=== PATIENT | female | born 1995 | race Caucasian/White ===

== ENCOUNTER 2019-03-12 08:26 | Observation (INO) | payer OTHER ==
[~2019-03-12] VITALS: Ht 167.6 cm; Wt 97.7 kg
[2019-03-12 09:14] VITALS: BP 125/73
[2019-03-12 10:20] LABS: MICROSCOPIC INDICATED
[2019-03-12 10:25] LABS: AMPHETAMINE SCREEN, URINE Negative (Negative); BARBITURATE SCREEN, URINE Negative (Negative); BENZODIAZEPINE SCREEN, URINE Negative (Negative); CANNABINOID SCREEN, URINE Negative (Negative); COCAINE SCREEN, URINE Negative (Negative); METHADONE SCREEN, URINE Negative (Negative); OPIATE SCREEN, URINE Negative (Negative)
[2019-03-12] MEDS ORDERED: PREN1TAB10 PO (13:52)
== END 2019-03-12 14:10 | disposition home or self-care (01) ==
LOC: LDOP 08:26 → LDIP 10:00
PROVIDERS: ADMIT Obstetrics & Gynecology Maternal & Fetal Medicine; ATTEND Obstetrics & Gynecology Maternal & Fetal Medicine
DX: O26.893 Other specified pregnancy related conditions, third trimester (principal); R10.9 Unspecified abdominal pain; O99.343 Other mental disorders complicating pregnancy, third trimester; F32.9 Major depressive disorder, single episode, unspecified; Z3A.40 40 weeks gestation of pregnancy
CPT/HCPCS: 59025; 76815; 80307; 81001; 84112; 99201; G0378; G0463

== ENCOUNTER 2019-03-12 16:37 | Inpatient (IN) | payer OTHER ==
[~2019-03-12] VITALS: Ht 167.6 cm; Wt 97.7 kg
[~2019-03-12 16:37] MED LIST: PREN1TAB10 PO
[2019-03-12] MEDS: D5%-LACTATED RINGERS 1,000 ML IV SCH (16:53)
[2019-03-12] MEDS ORDERED: OXYTOCIN 30U/ 0.9% NaCL 500ML 500 ML IV ONE (16:53)
[2019-03-12] MEDS: LACTATED RINGERS 1,000 ML IV SCH ×3 (16:53→23:34)
[2019-03-12] MEDS ORDERED: OXYTOCIN 30U/ 0.9% NaCL 500ML 500 ML IV PRN (16:53)
[2019-03-12] MEDS ORDERED: FENTANYL/BUPIV./NS/PF 250 ML EPIDCONT SCH ×2 (16:53→17:58)
[2019-03-12] MEDS ORDERED: ONDANSETRON 2MG/ML, 2ML IVPush PRN ×2 (17:00→18:00)
[2019-03-12] MEDS ORDERED: LACTATED RINGERS 1,000 ML IVBOLUS PRN ×2 (17:00→18:00)
[2019-03-12] MEDS ORDERED: EPHEDRINE 50 MG/ML, 1ML IVPush PRN ×2 (17:00→18:00)
[2019-03-12] MEDS ORDERED: FENTANYL PF 100 MCG/2ML IV PRN (17:00)
[2019-03-12] MEDS ORDERED: FENTANYL PF 100 MCG/2ML IVPush PRN (17:00)
[2019-03-12] MEDS ORDERED: CALCIUM CARBONATE 500 MG TAB.CHEW PO PRN (17:00)
[2019-03-12] MEDS ORDERED: NEWBORN KIT ONE (17:12)
[2019-03-12] MEDS ORDERED: FENTANYL PF 100 MCG/2ML ONE (17:14)
[2019-03-12 17:28] LABS: BASOPHILS % (AUTO) 0 % (0-1); EOSINOPHILS # (AUTO) 0.09 x10^3/uL (0-0.4); EOSINOPHILS % (AUTO) 1 % (1-7); LYMPHOCYTES # (AUTO) 1.15 x10^3/uL (1-3.4); LYMPHOCYTES % (AUTO) 7 % (22-44); MD NO; MEAN CORPUSCULAR HEMOGLOBIN 24.7 pg (27.0-34.8); MEAN PLATELET VOLUME 8.9 fL (7.4-10.4); MONOCYTES # (AUTO) 0.99 x10^3/uL (0.2-0.8); MONOCYTES % (AUTO) 6 % (2-9); NEUTROPHILS # (AUTO) 14.47 x10^3/uL (1.8-6.8); NEUTROPHILS % (AUTO) 87 % (42-75); PLATELET COUNT 300 x10^3/uL (130-400); RED CELL DISTRIBUTION WIDTH 17.8 % (9.6-15.2)
[2019-03-12] MEDS: PLEASE ENTER HEIGHT AND WEIGHT MC SCH ×2 (17:30)
[2019-03-12] MEDS ORDERED: LIDOCAINE/PF 1.5%-EPI 1:200K, 30ML ONE (17:53)
[2019-03-12] MEDS ORDERED: BUPIVACAINE 0.25% ONE (17:53)
[2019-03-12] MEDS ORDERED: LACTATED RINGERS 1,000 ML IV SCH (17:58)
[2019-03-12] MEDS ORDERED: DIPHENHYDRAMINE 50 MG/ML, 1ML IVPush PRN (18:00)
[2019-03-12] MEDS ORDERED: NALOXONE 0.4 MG/ML, 1ML IVPush PRN (18:00)
[2019-03-12] MEDS ORDERED: FENTANYL PF 500 MCG, BUPIVACAINE/PF 0.5%, 30ML 62.5 ML in SODIUM CHLORIDE 0.9% 177.5 ML EPIDCONT SCH (18:00)
[2019-03-12] MEDS ORDERED: LIDOCAINE/MPF 2%-EPI 1:200K, 20 ML ONE (19:23)
[2019-03-12] MEDS ORDERED: OXYTOCIN 30U/ 0.9% NaCL 500ML 500 ML ONE ×2 (19:53→23:29)
[2019-03-12] MEDS ORDERED: LIDOCAINE 1%, 20ML ONE ×2 (19:53→22:32)
[2019-03-12] MEDS ORDERED: MISOPROSTOL 200 MCG TABLET ONE (19:53)
[2019-03-12] MEDS ORDERED: MISOPROSTOL 200 MCG TABLET PR PRN (23:00)
[2019-03-12] MEDS ORDERED: OXYcodone IR 5MG TABLET PO PRN (23:00)
[2019-03-12] MEDS ORDERED: ONDANSETRON 2MG/ML, 2ML IV PRN (23:00)
[2019-03-12] MEDS: OXYTOCIN 30U/ 0.9% NaCL 500ML 500 ML IV SCH (23:34)
[2019-03-12] MEDS ORDERED: IBUPROFEN 600 MG TABLET ONE (23:47)
[2019-03-12] MEDS: IBUPROFEN 600 MG TABLET PO PRN (23:49)
[2019-03-13] MEDS: LACTATED RINGERS 1,000 ML IV SCH (00:53)
[2019-03-13] MEDS: D5%-LACTATED RINGERS 1,000 ML IV SCH (00:53)
[2019-03-13 01:20] VITALS: BP 122/73
[2019-03-13] MEDS: PLEASE ENTER HEIGHT AND WEIGHT MC SCH ×2 (01:30)
[2019-03-13 05:20] VITALS: BP 109/67
[2019-03-13 06:36] LABS: BASOPHILS # (AUTO) 0.15 x10^3/uL (0-0.1); BASOPHILS % (AUTO) 1 % (0-1); EOSINOPHILS # (AUTO) 0.02 x10^3/uL (0-0.4); EOSINOPHILS % (AUTO) 0 % (1-7); LYMPHOCYTES # (AUTO) 1.39 x10^3/uL (1-3.4); LYMPHOCYTES % (AUTO) 9 % (22-44); MD NO; MEAN CORPUSCULAR HEMOGLOBIN 24.4 pg (27.0-34.8); MEAN CORPUSCULAR HGB CONC 31.6 g/dL (32.4-35.8); MEAN CORPUSCULAR VOLUME 77.3 fL (80-100); MEAN PLATELET VOLUME 8.3 fL (7.4-10.4); MONOCYTES # (AUTO) 0.97 x10^3/uL (0.2-0.8); MONOCYTES % (AUTO) 6 % (2-9); NEUTROPHILS # (AUTO) 12.74 x10^3/uL (1.8-6.8); NEUTROPHILS % (AUTO) 83 % (42-75); PLATELET COUNT 247 x10^3/uL (130-400); RED BLOOD COUNT 3.96 x10^6/uL (3.82-5.3); RED CELL DISTRIBUTION WIDTH 17.4 % (9.6-15.2)
[2019-03-13] MEDS: DOCUSATE 100 MG CAPSULE PO PRN (07:50)
[2019-03-13] MEDS: PRENATAL VIT/IRON/FA 1 EACH TABLET PO SCH (07:50)
[2019-03-13 08:04] VITALS: BP 97/62
[2019-03-13] MEDS: OXYTOCIN 30U/ 0.9% NaCL 500ML 500 ML IV SCH ×2 (08:59→18:59)
[2019-03-13 12:49] VITALS: BP 101/70
[2019-03-13] MEDS: OXYcodone/APAP 5/325MG TABLET PO PRN (13:11)
[2019-03-13] MEDS: IBUPROFEN 600 MG TABLET PO PRN (13:11)
[2019-03-13 20:00] VITALS: BP 97/60
[2019-03-14] MEDS: IBUPROFEN 600 MG TABLET PO PRN ×2 (00:10→09:11)
[2019-03-14] MEDS: OXYcodone/APAP 5/325MG TABLET PO PRN (00:11)
[2019-03-14] MEDS: PRENATAL VIT/IRON/FA 1 EACH TABLET PO SCH (07:30)
[2019-03-14] MEDS: DOCUSATE 100 MG CAPSULE PO PRN (07:30)
[2019-03-14 08:16] VITALS: BP 106/71
[2019-03-14] MEDS ORDERED: IBUP-1222 PO (09:46)
== END 2019-03-14 11:56 | disposition home or self-care (01) | DRG 807 ==
LOC: LDOP 16:37 → LDIP 16:53 → UNDOADMIN 16:59 → 2NW 03-13 01:12
PROVIDERS: ADMIT Obstetrics & Gynecology Maternal & Fetal Medicine; ATTEND Obstetrics & Gynecology Maternal & Fetal Medicine
PROC: 10E0XZZ Delivery of Products of Conception, External Approach (ICD-10-PCS; principal; 2019-03-12)
PROC: 0KQM0ZZ Repair Perineum Muscle, Open Approach (ICD-10-PCS; 2019-03-12)
PROC: 3E0R3BZ Introduction of Anesthetic Agent into Spinal Canal, Percutaneous Approach (ICD-10-PCS; 2019-03-12)
PROC: 00HU33Z Insertion of Infusion Device into Spinal Canal, Percutaneous Approach (ICD-10-PCS; 2019-03-12)
DX: O69.3XX0 Labor and delivery complicated by short cord, not applicable or unspecified (principal); Z37.0 Single live birth; O99.344 Other mental disorders complicating childbirth; F41.8 Other specified anxiety disorders; O70.1 Second degree perineal laceration during delivery; Z3A.40 40 weeks gestation of pregnancy; Z71.89 Other specified counseling
CPT/HCPCS: 36415; 85025; 86850; 86900; G0378; J3010; J3490; J2590; J7120

== ENCOUNTER 2019-03-15 02:10 | Emergency (ER) | payer OTHER ==
[~2019-03-15] VITALS: Ht 167.6 cm; Wt 95.4 kg
[~2019-03-15 02:10] MED LIST changes: +IBUP-1222 PO
[2019-03-15] MEDS ORDERED: SODIUM CHLORIDE FLUSH 10ML SYR IVF ONE (02:30)
[2019-03-15] MEDS ORDERED: SODIUM CHLORIDE 0.9% 1,000ML IVBOLUS ONE (02:30)
[2019-03-15] MEDS ORDERED: KETOROLAC 30 MG/1 ML IVPush ONE (02:30)
--- NOTE | 2019-03-15 02:35 | NUR ---
Pt vaginal delivery friday. No known complications according to pt. Was awakened tonight from substernal sharp cp that is worse w/ position change and deep breathing. Pt denies any hx of clots. Denies any recent long travels. All monitoring applied. Vss. Call light within reach. Iv initiated per md order. This rn to medicate per oct.
[2019-03-15] MEDS ORDERED: KETOROLAC 30 MG/1 ML ONE (02:37)
[2019-03-15 03:03] LABS: BASOPHILS # (AUTO) 0.02 x10^3/uL (0-0.1); BASOPHILS % (AUTO) 0 % (0-1); EOSINOPHILS # (AUTO) 0.54 x10^3/uL (0-0.4); EOSINOPHILS % (AUTO) 4 % (1-7); LYMPHOCYTES # (AUTO) 1.59 x10^3/uL (1-3.4); LYMPHOCYTES % (AUTO) 12 % (22-44); MD NO; MEAN CORPUSCULAR HEMOGLOBIN 24.7 pg (27.0-34.8); MEAN CORPUSCULAR HGB CONC 31.3 g/dL (32.4-35.8); MEAN CORPUSCULAR VOLUME 79.1 fL (80-100); MEAN PLATELET VOLUME 8.4 fL (7.4-10.4); MONOCYTES # (AUTO) 0.86 x10^3/uL (0.2-0.8); MONOCYTES % (AUTO) 7 % (2-9); NEUTROPHILS # (AUTO) 10.23 x10^3/uL (1.8-6.8); NEUTROPHILS % (AUTO) 77 % (42-75); PLATELET COUNT 272 x10^3/uL (130-400); RED BLOOD COUNT 3.82 x10^6/uL (3.82-5.3); RED CELL DISTRIBUTION WIDTH 17.8 % (9.6-15.2)
[2019-03-15 03:15] LABS: ALANINE AMINOTRANSFERASE 60 U/L (12-78); ALBUMIN 2.1 g/dL (3.4-5.0); ANION GAP 10 mmol/L (5-15); CALCIUM 8.6 mg/dL (8.5-10.1); CHLORIDE 109 mmol/L (98-107); CREATININE 0.69 mg/dL (0.55-1.02)
[2019-03-15 03:19] LABS: ALKALINE PHOSPHATASE 191 U/L (45-117); BILIRUBIN,TOTAL 0.3 mg/dL (0.2-1.0); TOTAL PROTEIN 6.1 g/dL (6.4-8.2); TROPONIN I < 0.015 ng/mL (0.000-0.045)
--- NOTE | 2019-03-15 03:35 | NUR ---
Pt to CT.
[2019-03-15 03:50] VITALS: BP 114/63
--- NOTE | 2019-03-15 04:09 | NUR ---
Pt amb w/ steady gait to rr. States feeling better, but still hurts to deep breathe.
[2019-03-15] MEDS ORDERED: OMNIPAQUE 350 MG/ML, 100ML BOTTLE ONE (05:37)
== END 2019-03-15 05:09 | disposition home or self-care (01) ==
LOC: ED 02:46
DX: R07.89 Other chest pain (principal)
CPT/HCPCS: 36415; 71045; 71275; 80053; 84484; 85025; 85379; 93005; 96374; 99284; J1885; J7030; Q9967